=== PATIENT | female | born 1965 | race Caucasian/White ===

== ENCOUNTER 2017-05-30 15:08 | Inpatient (IN) | payer BC ==
[2017-05-30 17:36] VITALS: BMI 24.8
--- NOTE | 2017-05-30 19:30 | HP ---
CIWA Score - CIWA Score Nausea/Vomitin-Mild Nausea/No Vomiting Muscle Tremors: 4-Moderate,w/Arms Extend Anxiety: 4-Mod. Anxious/Guarded Agitation: 4-Moderately Restless Paroxysmal Sweats: 1-Minimal Palms Moist Orientation: 1-Uncertain about Date Tacttile Disturbances: 0-None Auditory Disturbances: 0-None Visual Disturbances: 0-None Headache: 0-None Present CIWA-Ar Total Score: 15 Admission ROS S - HPI Chief Complaint: WITHDRAWAL SX Allergies/Adverse Reactions: Allergies Allergy/AdvReac Type Severity Reaction Status Date / Time Penicillins Allergy Severe Rash Verified 05/30/17 18:15 History of Present Illness: 51 YEARS OLD FEMALE WITH LONG HISTORY OF ALCOHOL DEPENDENCE, HAS ASTHMA COPD GERD AND CHRON'S DISEASE AND DEPRESSION IS ADMITTED TO DETOX Exam Limitations: No Limitations - Ebola screening Have you traveled outside of the country in the last 21 days: No (N) Have you had contact with anyone from an Ebola affected area: No Have you been sick,other than usual withdrawal symptoms: No Do you have a fever: No - Review of Systems Constitutional: Changes in sleep, Weight Stable EENT: reports: Dental Problems (UPPER) Respiratory: reports: SOB with Exertion Cardiac: reports: No Symptoms Reported GI: reports: Nausea, Poor Fluid Intake, Indigestion, Abdominal cramping : reports: No Symptoms Reported Musculoskeletal: reports: Joint Pain (LEFT GREAT TOE LESION X) Integumentary: reports: Bruising (RIGHT ARM) Neuro: reports: Tremors Endocrine: reports: No Symptoms Reported Hematology: reports: No Symptoms Reported Psychiatric: reports: Judgement Intact, Anxious, Depressed Other Systems: Reviewed and Negative Patient History - Patient Medical History Hx Anemia: No Hx Asthma: Yes Hx Chronic Obstructive Pulmonary Disease (COPD): Yes Hx Cancer: No Hx Cardiac Disorders: No Hx Congestive Heart Failure: No Hx Hypertension: No Hx Hypercholesterolemia: No Hx Pacemaker: No HX Cerebrovascular Accident: No Hx Seizures: No Hx Dementia: No Hx Diabetes: No Hx Gastrointestinal Disorders: Yes Hx Liver Disease: No Hx Genitourinary Disorders: No Hx Sexually Transmitted Disorders: No Hx Renal Disease (ESRD): No Hx Thyroid Disease: No Hx Human Immunodeficiency Virus (HIV): No Hx Hepatitis C: No Hx Depression: Yes Hx Suicide Attempt: No Hx Bipolar Disorder: No Hx Schizophrenia: No - Patient Surgical History Past Surgical History: No Hx Neurologic Surgery: No Hx Cataract Extraction: No Hx Cardiac Surgery: No Hx Lung Surgery: No Hx Breast Surgery: No Hx Breast Biopsy: No Hx Abdominal Surgery: No Hx Appendectomy: No Hx Cholecystectomy: No Hx Genitourinary Surgery: No Hx Section: No Hx Orthopedic Surgery: No Hx Hysterectomy: No - PPD History Previous Implant?: Yes Documented Results: Negative w/proof Implanted On Prior [facility] Admission?: Yes Date: 09/29/12 PPD to be Administered?: Yes - Reproductive History Patient is a Female of Child Bearing Age (11 -55 yrs old): Yes Last Menstrual Period: 05/30/06 Patient : No - Smoking Cessation Smoking history: Former smoker Have you smoked in the past 12 months: No Aproximately how many cigarettes per day: 0 Hx Chewing Tobacco Use: No Initiated information on smoking cessation: No - Substance & Tx. History Hx Alcohol Use: Yes Hx Substance Use: No Substance Use Type: Alcohol Hx Substance Use Treatment: Yes (2013) - Substances Abused Alcohol Route: Oral Frequency: Daily Amount used: liquor- 2 pints Age of first use: 19 Date of Last Use: 05/30/17 Family Disease History - Family Disease History Family Disease History: Heart Disease: Mother (), Brother, Sister, Respiratory: Father, Other: Mother Admission Physical Exam S - Vital Signs Vital Signs: Vital Signs - 24 hr 05/30/17 17:32 Temperature 96.5 F L Pulse Rate 101 H Respiratory 18 Rate Blood Pressure 116/68 - Physical General Appearance: Yes: Nourished, Appropriately Dressed, Mild Distress, Alcohol on Breath, Tremorous, Irritable, Sweating, Anxious HEENTM: Yes: Hearing grossly Normal, Normal ENT Inspection, Normocephalic, Normal Voice Respiratory: Yes: Chest Non-Tender, No Respiratory Distress, No Accessory Muscle Use, Rhonchi, Wheezing, Hyperresonant Neck: Yes: Supple, Trachea in good position Breast: Yes: Breasts Symetrical Cardiology: Yes: Regular Rhythm, S1, S2, Tachycardia Abdominal: Yes: Non Tender, Soft, Increased Bowel Sounds Genitourinary: Yes: Within Normal Limits Back: Yes: Normal Inspection Musculoskeletal: Yes: full range of Motion, Gait Steady Extremities: Yes: Normal Range of Motion, Non-Tender, Tremors, Erythema (LEFT GREAT TOE LESION) Neurological: Yes: Alert, Motor Strength 5/5, Normal Response, Depressed Affect Integumentary: Yes: Erythema (LEFT GREAT TOE) Lymphatic: Yes: Within Normal Limits - Diagnostic (1) Alcohol dependence with uncomplicated withdrawal Current Visit: Yes Status: Acute (2) Asthma Current Visit: Yes Status: Chronic Qualifiers: Asthma severity: moderate Asthma persistence: persistent Asthma complication type: with status asthmaticus Qualified Code(s): J45.42 - Moderate persistent asthma with status asthmaticus (3) COPD (chronic obstructive pulmonary disease) Current Visit: Yes Status: Chronic Qualifiers: COPD type: emphysema Emphysema type: panlobular Qualified Code(s): J43.1 - Panlobular emphysema (4) GERD (gastroesophageal reflux disease) Current Visit: Yes Status: Chronic Qualifiers: Esophagitis presence: without esophagitis Qualified Code(s): K21.9 - Gastro -esophageal reflux disease without esophagitis (5) Depression (emotion) Current Visit: Yes Status: Suspected Qualifiers: Depression Type: dysthymia Qualified Code(s): F34.1 - Dysthymic disorder (6) Acute Crohn's disease without complication Current Visit: Yes Status: Chronic Comment: TREATED AT [facility] X 3 DAYS DISCHARGED "LAST WEEK" CONTINUE ALCOHOL DRINKING X "MAY DAYS" "ALL DAYS" (7) Ingrowing left great toenail Current Visit: Yes Status: Acute Comment: SOCK WITH 1:100 BETADINE Cleared for Admission [facility] - Detox or Rehab [facility] Level of Care: Medically Managed Detox Regimen/Protocol: Librium S Breath Alcohol Content Breath Alcohol Content: 0.140 Urine Pregancy Test - Result Urine Test Results: Negative- NO Line Present Urine Drug Screen - Results Drug Screen Negative: No Urine Drug Screen Results: BZO-Benzodiazepines
[2017-05-30] MEDS ORDERED: hydrOXYzine PAMOATE 50 MG CAPSULE (FP) PO PRN (19:43)
[2017-05-30] MEDS ORDERED: MAGNESIUM HYDROX 2400MG/30ML ORAL SUSPENSION 30 ML CUP PO PRN (19:43)
[2017-05-30] MEDS ORDERED: ACETAMINOPHEN 325 MG TABLET (FP) PO PRN (19:43)
[2017-05-30] MEDS ORDERED: guaiFENesin/D-METHORPHAN HB 10 ML UNIT-DOSE CUPS PO PRN (19:43)
[2017-05-30] MEDS ORDERED: chlordiazePOXIDE HCL 25 MG CAPSULE PO PRN (19:43)
[2017-05-30] MEDS ORDERED: LOPERAMIDE HCL 2 MG CAPSULE PO PRN (19:43)
[2017-05-30] MEDS ORDERED: MAGNESIUM CITRATE 300 ML BOTTLE PO PRN (19:43)
[2017-05-30] MEDS ORDERED: MENTHOL/PHENOL 1 EACH UD MM PRN (19:43)
[2017-05-30] MEDS ORDERED: P-EPHED 60MG/TRIPROLIDI 2.5MG TABLET PO PRN (19:43)
[2017-05-30] MEDS ORDERED: ALBUTEROL SO4 2.5/IPRATROPIUM 0.5 INH SOL 3 ML VIAL.NEB. NEB PRN (19:46)
[2017-05-30] MEDS: chlordiazePOXIDE HCL 25 MG CAPSULE PO SCH (22:28)
[2017-05-30] MEDS: RANITIDINE HCL 150 MG TABLET (FP) PO SCH ×2 (22:28→22:35)
[2017-05-30] MEDS: MONTELUKAST NA 10 MG TABLET PO SCH (22:29)
[2017-05-30] MEDS: TIOTROPIUM BROMIDE 18 MCG/INH (DEVICE W/ 5 CAPSULES) IH SCH (22:29)
[2017-05-30] MEDS: THIAMINE HCL 100 MG TABLET (FP) PO SCH (22:29)
[2017-05-30] MEDS: ALBUTEROL SO4 18 GM HFA INHALER IH SCH (22:33)
[2017-05-30] MEDS: MINERAL OIL/PETROLAT/WATER TOPICAL CREAM 113 GM JAR TP SCH (22:34)
[2017-05-30 23:47] LABS: URINE APPEARANCE CLEAR; URINE BILIRUBIN NEGATIVE (NEGATIVE); URINE BLOOD NEGATIVE (NEGATIVE); URINE COLOR DKYELLOW; URINE GLUCOSE (UA) NEGATIVE (NEGATIVE); URINE KETONE NEGATIVE (NEGATIVE); URINE NITRITE NEGATIVE (NEGATIVE); URINE PROTEIN NEGATIVE (NEGATIVE)
[2017-05-31] MEDS: chlordiazePOXIDE HCL 25 MG CAPSULE PO SCH ×4 (05:53→22:19)
[2017-05-31] MEDS: ALBUTEROL SO4 18 GM HFA INHALER IH SCH ×6 (05:56→22:21)
[2017-05-31 10:07] LABS: MCHC 32.1 g/dl (32.0-36.0); MEAN CELL VOLUME 93.6 fl (80-96); MEAN PLT VOLUME 9.5 fl (7.5-11.1); PLATELET COUNT 245 K/MM3 (134-434); WHITE BLOOD COUNT 10.4 K/mm3 (4.0-10.0)
[2017-05-31 10:19] LABS: ALBUMIN 3.5 g/dl (3.4-5.0)
--- NOTE | 2017-05-31 10:19 | EKG ---
Test Reason : Blood Pressure : / mmHG Vent. Rate : 094 BPM Atrial Rate : 094 BPM P-R Int : 116 ms QRS Dur : 072 ms QT Int : 360 ms P-R-T Axes : 030 051 008 degrees QTc Int : 450 ms NORMAL SINUS RHYTHM NONSPECIFIC T WAVE ABNORMALITY ABNORMAL ECG NO PREVIOUS ECGS AVAILABLE Confirmed by LAUREN FARMER MD ([id number]) on 05/31/2017 10:18:50 AM Referred By: Confirmed By:LAUREN FARMER MD
--- NOTE | 2017-05-31 10:19 | PN ---
[facility] CIWA - CIWA Score Nausea/Vomitin Muscle Tremors: 3 Anxiety: 3 Agitation: 3 Paroxysmal Sweats: 3 Orientation: 0-Oriented Tacttile Disturbances: 1-Very Mild Itch/Numbness Auditory Disturbances: 0-None Visual Disturbances: 0-None Headache: 1-Very Mild CIWA-Ar Total Score: 17 S Progress Note (SOAP) Subjective: nausea, sweats, interrupted sleep, anxiety, tremors, ingrown painful toenail Objective: 05/31/17 10:17 Vital Signs - 24 hr 05/30/17 05/30/17 05/31/17 17:32 21:55 00:36 Temperature 96.5 F L 97.7 F Pulse Rate 101 H 100 H Respiratory 18 20 18 Rate Blood Pressure 116/68 128/84 05/31/17 05/31/17 03:30 06:00 Temperature 97.9 F Pulse Rate 79 Respiratory 18 18 Rate Blood Pressure 119/66 Laboratory Tests 05/30/17 05/31/17 23:30 07:00 WBC 10.4 H RBC 3.25 L Hgb 9.8 L D Hct 30.5 L MCV 93.6 MCH 30.0 MCHC 32.1 RDW 17.0 H Plt Count 245 D MPV 9.5 D Urine Color Dkyellow Urine Appearance Clear Urine pH 5.0 Ur Specific [place] 1.014 Urine Protein Negative Urine Glucose (UA) Negative Urine Ketones Negative Urine Blood Negative Urine Nitrite Negative Urine Bilirubin Negative Urine Urobilinogen 2.0 H aneami, eleavted wbc, labs still pending, erytehmatous exophytic growth left big toe Assessment: 05/31/17 10:18 withdrawal sx, - cont detox, , fluids, ingrown toenail with exophytic growth, start bactri, daily wet to dry dressing and bacitracin with bandage after. Nurses informed
[2017-05-31 10:24] LABS: ALK PHOS 347 U/L (45-117); ANION GAP 8 (8-16); BILIRUBIN,TOTAL 1.5 mg/dL (0.2-1.0); CALCIUM 8.8 mg/dL (8.5-10.1); CO2 27 mmol/L (21-32); CREATININE 0.6 mg/dL (0.55-1.02); GLUCOSE,RANDOM 96 mg/dL (74-106); SGOT/AST 71 U/L (15-37); SGPT/ALT 36 U/L (12-78)
[2017-05-31] MEDS: FERROUS SO4 325 MG TABLET (FP) PO SCH ×3 (10:30→17:35)
[2017-05-31] MEDS: PRENATAL VITAMINS W/ FOLIC ACID TABLET (FP) PO SCH (10:43)
[2017-05-31] MEDS: RANITIDINE HCL 150 MG TABLET (FP) PO SCH ×2 (10:44→22:19)
[2017-05-31] MEDS: TIOTROPIUM BROMIDE 18 MCG/INH (DEVICE W/ 5 CAPSULES) IH SCH ×2 (10:47→11:48)
[2017-05-31 11:37] LABS: URINE LEUK ESTERASE Negative (NEGATIVE)
[2017-05-31] MEDS: SULFAMETHOXAZOLE/TRIMETHOPRIM 800MG/160MG D.S. TABLET PO SCH ×2 (11:50→22:19)
[2017-05-31] MEDS: BACITRACIN 0.9 GM PACKET TP SCH (11:51)
[2017-05-31] MEDS ORDERED: MESALAMINE 250 MG PO SCH (14:00)
[2017-05-31] MEDS: MESALAMINE 800 MG TABLET.DR PO SCH ×2 (15:57→23:35)
--- NOTE | 2017-05-31 16:24 | CONSULT ---
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 Substance Abuse History: Discussed in this sessin.Patient admits to active use of alcohol .See [facility] report for details : Smoking history: Former smoker. Have you smoked in the past 12 months: No. Aproximately how many cigarettes per day : 0. Hx Chewing Tobacco Use: No. Initiated information on smoking cessation: No. - Substance & Tx. History. Hx Alcohol Use: Yes. Hx Substance Use: No. Substance Use Type: Alcohol. Hx Substance Use Treatment: Yes (2013). - Substances Abused. Alcohol. Route: Oral. Frequency: Daily. Amount used: liquor- 2 pints. Age of first use: 19. Date of Last Use: 05/30/17 Medical History: Bronchial asthma and Crohn's disease. Psychiatric History: No reported history of psychiatric hospitalizations.Patient is currently under the care of a private psychiatrist in [place].Endorses the diagnosis of Anxiety Disorder and prescribed clonazepam.Ms Yang denies history of suicide attempts. Physical/Sexual Abuse/Trauma History: Patient denies history of abuse. Additional Comment: Urine Drug Screen Results: BZO-Benzodiazepines.Noted. Mental Status Exam - Mental Status Exam Alert and Oriented to: Time, Place, Person Cognitive Function: Good Patient Appearance: Well Groomed Mood: Nervous, Anxious, Hopeful Affect: Mood Congruent Patient Behavior: Fatigued, Appropriate, Cooperative Speech Pattern: Clear Voice Loudness: Normal Thought Process: Intact, Goal Oriented Thought Disorder: Not Present Hallucinations: Denies Suicidal Ideation: Denies Homicidal Ideation: Denies Insight/Judgement: Poor Sleep: Poorly, Difficulty falling asleep Appetite: Good Muscle strength/Tone: Normal Gait/Station: Normal Psychiatric Findings - Problem List ([place] 1, 2,3) (1) Alcohol dependence with uncomplicated withdrawal Current Visit: Yes Status: Acute (2) Alcohol-induced mood disorder Current Visit: Yes Status: Suspected (3) Insomnia Current Visit: Yes Status: Acute - Initial Treatment Plan Initial Treatment Plan: Psychoeducation.Sleep hygiene recommended.Detoxification in progress.Trazodone 50 mg po hs.Side effects/ benefits discussed with patient.Consent (verbal) given for implementation of this careplan.Observation.
[2017-05-31] MEDS ORDERED: ZOLPIDEM TARTRATE 10 MG TABLET (PARK CARE ONLY) PO PRN (22:00)
[2017-05-31] MEDS: MONTELUKAST NA 10 MG TABLET PO SCH (22:19)
[2017-05-31] MEDS: traZODone HCL 50 MG TABLET (FP) PO SCH (22:19)
[2017-05-31] MEDS: THIAMINE HCL 100 MG TABLET (FP) PO SCH (22:19)
[2017-05-31] MEDS: FLUTICASONE/SALMETEROL 100 MCG/50 MCG DISKUS IH SCH (22:19)
[2017-05-31] MEDS: MINERAL OIL/PETROLAT/WATER TOPICAL CREAM 113 GM JAR TP SCH (22:21)
[2017-06-01] MEDS: ALBUTEROL SO4 18 GM HFA INHALER IH SCH ×6 (02:52→22:22)
[2017-06-01] MEDS: chlordiazePOXIDE HCL 25 MG CAPSULE PO SCH ×3 (06:07→16:43)
[2017-06-01] MEDS: MESALAMINE 800 MG TABLET.DR PO SCH ×3 (06:07→22:22)
[2017-06-01] MEDS: FERROUS SO4 325 MG TABLET (FP) PO SCH ×3 (08:12→16:43)
--- NOTE | 2017-06-01 10:03 | EKG ---
Test Reason : Blood Pressure : / mmHG Vent. Rate : 083 BPM Atrial Rate : 083 BPM P-R Int : 126 ms QRS Dur : 082 ms QT Int : 400 ms P-R-T Axes : 020 049 009 degrees QTc Int : 470 ms NORMAL SINUS RHYTHM NORMAL ECG WHEN COMPARED WITH ECG OF 30-MAY-2017 21:47, T WAVE INVERSION NO LONGER EVIDENT IN ANTERIOR LEADS Confirmed by LAUREN FARMER MD ([id number]) on 06/01/2017 10:03:21 AM Referred By: Confirmed By:LAUREN FARMER MD
[2017-06-01] MEDS: FLUTICASONE/SALMETEROL 100 MCG/50 MCG DISKUS IH SCH ×2 (10:23→22:22)
[2017-06-01] MEDS: SULFAMETHOXAZOLE/TRIMETHOPRIM 800MG/160MG D.S. TABLET PO SCH ×2 (10:24→22:23)
[2017-06-01] MEDS: RANITIDINE HCL 150 MG TABLET (FP) PO SCH ×2 (10:24→22:23)
[2017-06-01] MEDS: PRENATAL VITAMINS W/ FOLIC ACID TABLET (FP) PO SCH (10:24)
[2017-06-01] MEDS: BACITRACIN 0.9 GM PACKET TP SCH (10:24)
[2017-06-01] MEDS: TIOTROPIUM BROMIDE 18 MCG/INH (DEVICE W/ 5 CAPSULES) IH SCH (10:24)
--- NOTE | 2017-06-01 11:42 | PN ---
S CIWA - CIWA Score Nausea/Vomitin-No Nausea/No Vomiting Muscle Tremors: 4-Moderate,w/Arms Extend Anxiety: 3 Agitation: 4-Moderately Restless Paroxysmal Sweats: 3 Orientation: 0-Oriented Tacttile Disturbances: 0-None Auditory Disturbances: 0-None Visual Disturbances: 0-None Headache: 0-None Present CIWA-Ar Total Score: 14 BHS Progress Note (SOAP) Subjective: feeling better interrupted sleep agitation sweats Objective: 06/01/17 11:41 Vital Signs Temperature 97.2 F L 06/01/17 10:00 Pulse Rate 89 06/01/17 10:00 Respiratory Rate 18 06/01/17 10:00 Blood Pressure 116/79 06/01/17 10:00 O2 Sat by Pulse Oximetry (%) Laboratory Tests 05/30/17 05/30/17 05/31/17 07:00 23:30 07:00 WBC 10.4 H RBC 3.25 L Hgb 9.8 L D Hct 30.5 L MCV 93.6 MCH 30.0 MCHC 32.1 RDW 17.0 H Plt Count 245 D MPV 9.5 D Sodium Potassium Chloride Carbon Dioxide Anion Gap BUN Creatinine Creat Clearance w eGFR Random Glucose Calcium Total Bilirubin AST ALT Alkaline Phosphatase Total Protein Albumin Urine Color Dkyellow Urine Appearance Clear Urine pH 5.0 Ur Specific [place] 1.014 Urine Protein Negative Urine Glucose (UA) Negative Urine Ketones Negative Urine Blood Negative Urine Nitrite Negative Urine Bilirubin Negative Urine Urobilinogen 2.0 H Ur Leukocyte Esterase Negative RPR Titer Hepatitis C Antibody 0.2 05/31/17 05/31/17 07:00 07:00 WBC RBC Hgb Hct MCV MCH MCHC RDW Plt Count MPV Sodium 139 Potassium 3.8 Chloride 104 Carbon Dioxide 27 Anion Gap 8 BUN 12 D Creatinine 0.6 D Creat Clearance w eGFR > 60 Random Glucose 96 D Calcium 8.8 Total Bilirubin 1.5 H D AST 71 H D ALT 36 Alkaline Phosphatase 347 H D Total Protein 8.0 Albumin 3.5 Urine Color Urine Appearance Urine pH Ur Specific [place] Urine Protein Urine Glucose (UA) Urine Ketones Urine Blood Urine Nitrite Urine Bilirubin Urine Urobilinogen Ur Leukocyte Esterase RPR Titer Nonreactive Hepatitis C Antibody aaox3 ambulating no acute distress Assessment: 06/01/17 11:42 mild withdrawal sx Plan: continue detox increase fluids
[2017-06-01] MEDS: MAG HYDROX/AL HYDROX/SIMETH 30 ML UNIT-DOSE CUP PO PRN ×2 (11:46→18:08)
[2017-06-01] MEDS: THIAMINE HCL 100 MG TABLET (FP) PO SCH (22:22)
[2017-06-01] MEDS: MONTELUKAST NA 10 MG TABLET PO SCH (22:23)
[2017-06-01] MEDS: MINERAL OIL/PETROLAT/WATER TOPICAL CREAM 113 GM JAR TP SCH (22:23)
[2017-06-01] MEDS: chlordiazePOXIDE 5 MG CAPSULE PO SCH (22:23)
[2017-06-01] MEDS: traZODone HCL 50 MG TABLET (FP) PO SCH (22:23)
[2017-06-02] MEDS: chlordiazePOXIDE 5 MG CAPSULE PO SCH ×3 (05:50→17:27)
[2017-06-02] MEDS: ALBUTEROL SO4 18 GM HFA INHALER IH SCH ×6 (05:50→22:22)
[2017-06-02] MEDS: MESALAMINE 800 MG TABLET.DR PO SCH ×3 (05:51→22:21)
[2017-06-02] MEDS: FERROUS SO4 325 MG TABLET (FP) PO SCH ×3 (07:08→17:27)
[2017-06-02] MEDS: SULFAMETHOXAZOLE/TRIMETHOPRIM 800MG/160MG D.S. TABLET PO SCH ×2 (10:42→22:21)
[2017-06-02] MEDS: PRENATAL VITAMINS W/ FOLIC ACID TABLET (FP) PO SCH (10:42)
[2017-06-02] MEDS: BACITRACIN 0.9 GM PACKET TP SCH (10:42)
[2017-06-02] MEDS: RANITIDINE HCL 150 MG TABLET (FP) PO SCH ×2 (10:42→22:21)
[2017-06-02] MEDS: FLUTICASONE/SALMETEROL 100 MCG/50 MCG DISKUS IH SCH ×2 (10:43→22:21)
[2017-06-02] MEDS: MAG HYDROX/AL HYDROX/SIMETH 30 ML UNIT-DOSE CUP PO PRN ×2 (10:46→18:23)
[2017-06-02] MEDS: TIOTROPIUM BROMIDE 18 MCG/INH (DEVICE W/ 5 CAPSULES) IH SCH (11:01)
--- NOTE | 2017-06-02 11:53 | PN ---
[facility] Progress Note (SOAP) Subjective: agitation little sweats Objective: 06/02/17 11:52 Vital Signs Temperature 98.4 F 06/02/17 09:23 Pulse Rate 88 06/02/17 09:23 Respiratory Rate 18 06/02/17 09:23 Blood Pressure 111/72 06/02/17 09:23 O2 Sat by Pulse Oximetry (%) aaox3 ambulating no acute distress Assessment: 06/02/17 11:52 withdrawal sx Plan: continue detox increase fluids d/c in am
[2017-06-02] MEDS: THIAMINE HCL 100 MG TABLET (FP) PO SCH (22:20)
[2017-06-02] MEDS: MINERAL OIL/PETROLAT/WATER TOPICAL CREAM 113 GM JAR TP SCH (22:21)
[2017-06-02] MEDS: traZODone HCL 50 MG TABLET (FP) PO SCH (22:21)
[2017-06-02] MEDS: MONTELUKAST NA 10 MG TABLET PO SCH (22:21)
[2017-06-02] MEDS: chlordiazePOXIDE HCL 10 MG CAPSULE PO SCH (22:21)
[2017-06-03] MEDS: MAG HYDROX/AL HYDROX/SIMETH 30 ML UNIT-DOSE CUP PO PRN (01:34)
[2017-06-03] MEDS: MESALAMINE 800 MG TABLET.DR PO SCH (05:21)
[2017-06-03] MEDS: chlordiazePOXIDE HCL 10 MG CAPSULE PO SCH (05:21)
[2017-06-03] MEDS: ALBUTEROL SO4 18 GM HFA INHALER IH SCH ×2 (05:42→07:37)
[2017-06-03 06:30] VITALS: BP 101/57; PULSE 81; TEMP 97.7
[2017-06-03] MEDS: FERROUS SO4 325 MG TABLET (FP) PO SCH (07:38)
--- NOTE | 2017-06-03 09:28 | DS ---
[facility] Detox Discharge Summary Admission Date: 05/30/17 Discharge Date: 06/03/17 - History Present History: Alcohol Dependence Pertinent Past History: GERD Asthma COPD - Physical Exam Results Vital Signs: Vital Signs Temperature 97.7 F 06/03/17 06:29 Pulse Rate 81 06/03/17 06:29 Respiratory Rate 18 06/03/17 06:29 Blood Pressure 101/57 06/03/17 06:29 O2 Sat by Pulse Oximetry (%) Pertinent Admission Physical Exam Findings: Withdrawal sx. Laboratory Last Values WBC 10.4 K/mm3 (4.0-10.0) H 05/31/17 07:00 RBC 3.25 M/mm3 (3.60-5.2) L 05/31/17 07:00 Hgb 9.8 GM/dL (10.7-15.3) L D 05/31/17 07:00 Hct 30.5 % (32.4-45.2) L 05/31/17 07:00 MCV 93.6 fl (80-96) 05/31/17 07:00 MCH 30.0 pg (25.7-33.7) 05/31/17 07:00 MCHC 32.1 g/dl (32.0-36.0) 05/31/17 07:00 RDW 17.0 % (11.6-15.6) H 05/31/17 07:00 Plt Count 245 K/MM3 (134-434) D 05/31/17 07:00 MPV 9.5 fl (7.5-11.1) D 05/31/17 07:00 Sodium 139 mmol/L (136-145) 05/31/17 07:00 Potassium 3.8 mmol/L (3.5-5.1) 05/31/17 07:00 Chloride 104 mmol/L (98-107) 05/31/17 07:00 Carbon Dioxide 27 mmol/L (21-32) 05/31/17 07:00 Anion Gap 8 (8-16) 05/31/17 07:00 BUN 12 mg/dL (7-18) D 05/31/17 07:00 Creatinine 0.6 mg/dL (0.55-1.02) D 05/31/17 07:00 Creat Clearance w eGFR > 60 (>60) 05/31/17 07:00 Random Glucose 96 mg/dL (74-106) D 05/31/17 07:00 Calcium 8.8 mg/dL (8.5-10.1) 05/31/17 07:00 Total Bilirubin 1.5 mg/dL (0.2-1.0) H D 05/31/17 07:00 AST 71 U/L (15-37) H D 05/31/17 07:00 ALT 36 U/L (12-78) 05/31/17 07:00 Alkaline Phosphatase 347 U/L (45-117) H D 05/31/17 07:00 Total Protein 8.0 g/dl (6.4-8.2) 05/31/17 07:00 Albumin 3.5 g/dl (3.4-5.0) 05/31/17 07:00 Urine Color Dkyellow 05/30/17 23:30 Urine Appearance Clear 05/30/17 23:30 Urine pH 5.0 (5.0-8.0) 05/30/17 23:30 Ur Specific [place] 1.014 (1.001-1.035) 05/30/17 23:30 Urine Protein Negative (NEGATIVE) 05/30/17 23:30 Urine Glucose (UA) Negative (NEGATIVE) 05/30/17 23:30 Urine Ketones Negative (NEGATIVE) 05/30/17 23:30 Urine Blood Negative (NEGATIVE) 05/30/17 23:30 Urine Nitrite Negative (NEGATIVE) 05/30/17 23:30 Urine Bilirubin Negative (NEGATIVE) 05/30/17 23:30 Urine Urobilinogen 2.0 mg/dL (0.2-1.0) H 05/30/17 23:30 Ur Leukocyte Esterase Negative (NEGATIVE) 05/30/17 23:30 RPR Titer Nonreactive (NONREACTIVE) 05/31/17 07:00 Hepatitis C Antibody 0.2 s/co ratio (0.0-0.9) 05/30/17 07:00 labs noted - Treatment Hospital Course: Detox Protocol Followed, Detoxed Safely, Responded well, Discharged Condition Good, Rehab Referral Accepted Patient has Accepted a Rehab Referral to: [facility] IOP - Medication Discharge Medications: Ambulatory Orders Albuterol Sulfate Inhaler - [Ventolin Hfa *Inhaler*] 2 inh IH Q4H 09/26/12 Clonazepam [KlonoPIN] 0.5 mg PO QID 09/26/12 Montelukast Na [Singulair] 10 mg PO HS 09/26/12 Salmeterol/Fluticasone [Advair 100Mg/50Mg] 1 inh IH BID 09/26/12 Mesalamine [Pentasa] 250 mg PO QID 05/30/17 Omeprazole 40 mg PO BID 05/30/17 - Diagnosis (1) Acute Crohn's disease without complication Current Visit: Yes Status: Chronic (2) Alcohol dependence with uncomplicated withdrawal Current Visit: Yes Status: Acute (3) Asthma Current Visit: Yes Status: Chronic Qualifiers: Asthma severity: moderate Asthma persistence: persistent Asthma complication type: with status asthmaticus Qualified Code(s): J45.42 - Moderate persistent asthma with status asthmaticus (4) COPD (chronic obstructive pulmonary disease) Current Visit: Yes Status: Chronic Qualifiers: COPD type: emphysema Emphysema type: panlobular Qualified Code(s): J43.1 - Panlobular emphysema (5) GERD (gastroesophageal reflux disease) Current Visit: Yes Status: Chronic Qualifiers: Esophagitis presence: without esophagitis Qualified Code(s): K21.9 - Gastro -esophageal reflux disease without esophagitis (6) Alcohol-induced mood disorder Current Visit: Yes Status: Suspected (7) Asthma Current Visit: No Status: Active - AMA Did Patient Leave Against Medical Advice: No
== END 2017-06-03 09:27 | disposition home or self-care (01) | DRG 897 ==
LOC: YASAS 15:08 → Y6N 20:08
PROVIDERS: ADMIT Internal Medicine; ATTEND Internal Medicine
PROC: HZ2ZZZZ Detoxification Services for Substance Abuse Treatment (ICD-10-PCS; principal; 2017-05-30)
DX: F10.230 Alcohol dependence with withdrawal, uncomplicated (principal); J45.42 Moderate persistent asthma with status asthmaticus; K50.90 Crohn's disease, unspecified, without complications; F10.24 Alcohol dependence with alcohol-induced mood disorder; G47.00 Insomnia, unspecified; F39 Unspecified mood [affective] disorder; J43.1 Panlobular emphysema; K21.9 Gastro-esophageal reflux disease without esophagitis
CPT/HCPCS: 36415; 80053; 81003; 85027; 86593; 86803; 93005; 93010